=== PATIENT | male | born 1970 | race Caucasian/White ===

== ENCOUNTER 2022-06-24 15:57 | Emergency (ER) | payer BC ==
[~2022-06-24] VITALS: Ht 182.9 cm; Wt 93.0 kg
[2022-06-24 16:04] VITALS: BP 148/100
--- NOTE | 2022-06-24 16:19 | ER.PDOC ---
General Chief Complaint: Headache Stated Complaint: HEADACHE Time seen by MD: 16:16 Source: patient Exam Limitations: no limitations History of Present Illness Initial Comments Headache for the last several days. 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 He is worried that there may be a problem with the shunt. No other complaints. Severity/Quality: moderate Prior Headaches/Recent Trauma: chronic headaches, occasional headaches Associated Symptoms: denies symptoms Allergies: Coded Allergies: No Known Allergies (Unverified , 03/25/22) Past Medical History Medical History: CVA/TIA/stroke, hypertension Surgical History: no surgical history Family History Significant Family History: no pertinent family hx Social History Smoking: non-smoker Alcohol Use: none Drug Use: none Review of Systems Constitutional: no symptoms reported Respiratory: no symptoms reported Cardiovascular: no symptoms reported Gastrointestinal: no symptoms reported Genitourinary: no symptoms reported Musculoskeletal: no symptoms reported All Other Systems: Reviewed and Negative Physical Exam General Appearance: No Apparent Distress, WD/WN Head/Eyes: eyes nml inspection, no facial swelling, no nystagmus, PERRL ENT: nml ENT inspection, pharynx nml Neck: nml inspection, Supple Cardiovascular: Normal Peripheral Pulses, Regular Rate, Rhythm, No Edema, No Gallop, No JVD, No Murmur Respiratory: chest non-tender, lungs clear, normal breath sounds, no respiratory distress, no accessory muscle use Gastrointestinal: Normal Bowel Sounds, No Organomegaly, No Pulsatile Mass, Non Tender, Soft Back: Normal Inspection, No CVA Tenderness, No Vertebral Tenderness Extremities: Normal Range of Motion, Non-Tender, Normal Inspection, No Pedal Edema, No Calf Tenderness, Normal Capillary Refill Psychiatric: Alert, Oriented x 3 Cranial Nerves: Normal Hearing, Normal Speech, PERRL Coordination/Gait: Normal Finger to Nose, Normal Gait Motor/Sensory: No Motor Deficit, No Sensory Deficit, No Pronator Drift, Negative Babinski's Sign Skin: Warm/Dry, Normal Color Results/Orders Results/Orders Orders - YING HARRIS MD Ct Head Wo Contrast (06/24/22 16:12) Vital Signs Date Time Temp Pulse Resp B/P (MAP) Pulse Ox O2 Delivery O2 Flow Rate FiO2 06/24/22 16:04 97.7 88 18 06/24/22 16:04 97.7 88 18 97 06/24/22 16:04 97.7 88 18 148/100 (116) 97 Room Air* [address] head: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 No acute superimposed process is identified He refused pain medicine telling me that headache is mild. ER DEPART Departure Time of Disposition: 16:47 Disposition: 01 HOME / SELF CARE / HOMELESS Impression: Primary Impression: Headache Condition: Stable Referrals: PCP,UNKNOWN (PCP) PRIMARY CARE PROVIDER Additional Instructions: Tylenol Follow-up with your PCP in 2 to 3 days Return to ED if worse or concerns Duration or Time Spent with Pa: 10 min Problem Qualifiers Primary Impression: Headache Headache type: unspecified Headache chronicity pattern: acute headache Intractability: intractable Qualified Codes: R51.9 - Headache, unspecified YING HARRIS MD Jun 24, 2022 16:19
--- NOTE | 2022-06-24 16:35 | DIREP ---
PROCEDURE:CT HEAD OR BRAIN W/O CONTRAST COMPARISON:None. INDICATIONS:Headache TECHNIQUE:CT images were created without intravenous contrast. FINDINGS: VENTRICLES:DAIRY CONSULTANT shunt from right-sided approach. CEREBRUM:Minimal regions of encephalomalacia along the DAIRY CONSULTANT shunt. No acute findings are suspected. CEREBELLUM:Negative. BRAINSTEM:Negative. BASAL CISTERNS:Negative. HEMORRHAGE:No MASS LESION:No ACUTE INFARCT:No SKULL:Normal. SINUSES:Normal. OTHER:Status post aneurysm clipping. CONCLUSION:Post DAIRY CONSULTANT shunt and aneurysm clipping. No acute superimposed process is identified Dictated by: Elmo Swain MD on 06/24/2022 at 04:29 PM
== END 2022-06-24 16:53 | disposition home or self-care (01) ==
LOC: ER 15:57
DX: R51.9 Headache, unspecified (principal); I10 Essential (primary) hypertension; Z86.73 Personal history of transient ischemic attack (TIA), and cerebral infarction without residual deficits; Z98.2 Presence of cerebrospinal fluid drainage device
CPT/HCPCS: 70450; 99284